=== PATIENT | female | born 1960 | race Caucasian/White ===

== ENCOUNTER 2018-08-12 13:23 | Emergency (ER) | payer OTHER ==
[2018-08-12] MEDS ORDERED: KETOROLAC 30 MG/ML INJ ONE (15:17)
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
--- NOTE | 2018-08-12 16:00 | RAD REPORT ---
EXAM DESCRIPTION: RAD - Lumbar Spine 3 Views - 08/12/2018 3:50 pm CLINICAL HISTORY: Back pain FINDINGS: The bones are osteoporotic. Mild rotoscoliosis is present. No fracture or dislocation seen. Marked spondylosis involves L2-3. Moderate spondylosis involves L3-4. Disc space narrowing and osteop hytes are present.
--- NOTE | 2018-08-12 16:01 | RAD REPORT ---
EXAM DESCRIPTION: RAD - Hip Right 2 View - 08/12/2018 3:51 pm CLINICAL HISTORY: Right hip pain FINDINGS: Bones are osteoporotic. Marked osteoarthritis involves the right hip consisting joint spac e narrowing, subchondral sclerosis and osteophytes. No fracture or dislocation seen. If patient continues to have symptoms to suggest an occult fracture then MRI would be recommended
--- NOTE | 2018-08-12 16:02 | RAD REPORT ---
EXAM DESCRIPTION: RAD - Elbow Right 3 View - 08/12/2018 3:50 pm CLINICAL HISTORY: Right elbow pain FINDINGS: No fracture or dislocation is seen. Osteoporosis
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
== END 2018-08-12 16:26 | disposition home or self-care (01) ==
LOC: ER 13:23
DX: S39.011A Strain of muscle, fascia and tendon of abdomen, initial encounter (principal); S39.012A Strain of muscle, fascia and tendon of lower back, initial encounter; S39.013A Strain of muscle, fascia and tendon of pelvis, initial encounter; S70.01XA Contusion of right hip, initial encounter; V49.9XXA Car occupant (driver) (passenger) injured in unspecified traffic accident, initial encounter; M25.511 Pain in right shoulder; M25.521 Pain in right elbow; M85.80 Other specified disorders of bone density and structure, unspecified site; M81.0 Age-related osteoporosis without current pathological fracture; M25.78 Osteophyte, vertebrae; M47.816 Spondylosis without myelopathy or radiculopathy, lumbar region; M41.9 Scoliosis, unspecified
CPT/HCPCS: 72040; 72100; 96372; 99284